=== PATIENT | male | born 1990 | race Caucasian/White ===

== ENCOUNTER 2021-04-18 16:22 | Emergency (ER) | payer SELFPAY ==
[2021-04-18 16:42] VITALS: BP 128/83; PULSE 89; RESP 18; TEMP 36.7; O2SAT 97; BMI 25.7
--- NOTE | 2021-04-18 17:10 | XRR_ITS ---
PROCEDURE INFORMATION: Exam: XR Right Foot Exam date and time: 04/18/2021 5:10 PM Age: 30 years old Clinical indication: Injury or trauma; Fall; Laceration; Foot; Right; Foreign body involvement not specified; Additional info: Laceration/fb TECHNIQUE: Imaging protocol: XR Right foot. Views: 3 or more views. COMPARISON: No relevant prior studies available. FINDINGS: Bones/joints: Normal. Soft tissues: Negative for soft tissue foreign body. XR/XR foot RT min 3V* [id number] IMPRESSION: Radiographically unremarkable right foot.
--- NOTE | 2021-04-18 17:16 | W.ED.WOUNDLC ---
HPI - Wound/Laceration General: Chief Complaint: Wound/Laceration Stated Complaint: right foot lac Time Seen by Provider: 04/18/21 16:51 History of Present Illness: HPI narrative: 30-year-old male presents emergency room laceration on the bottom of his foot. [place] the foot was bleeding pretty significantly triage nurse reportedly first arrived pressure bandage applied when I can look at it he does have an open laceration with small amount of gap gaping. Its continues to ooze some it was rewrapped with a pressure bandage and Coban. He is unsure of his last tetanus and denies any other injuries. Onset (ago): minute(s) Extremity Location: Right: foot Place: outdoors Patient tetanus UTD: No Context: accidental Associated symptoms: Reports pain; Denies chills, fever(s), foreign body sensation, inability to move, nausea, numbness, syncope or vomiting Treatments prior to arrival: bandage Review of Systems Const: Denies: fever(s) or chills ENMT: Denies: throat pain, ear or mastoid pain, nasal discharge or nasal congestion Card: Denies: syncope Resp: Denies: dyspnea, productive cough or non-productive cough GI: Denies: nausea or vomiting : Denies: flank pain, dysuria, urinary frequency or urinary urgency Skin/Breast: Denies: rash or pruritus Physical Exam Const: COMMON NORMALS: no acute distress GENERAL APPEARANCE: cooperative and comfortable ORIENTATION/CONSCIOUSNESS: Yes awake, Yes oriented to person, Yes oriented to place and Yes oriented to time HENMT: COMMON NORMALS: normocephalic, atraumatic and hearing grossly normal bilaterally HEAD & SCALP: normocephalic and atraumatic Neck/C-Spine: COMMON NORMALS: no JVD Resp: COMMON NORMALS: normal respiratory effort, No retractions, No use of accessory muscles and clear to auscultation bilaterally AUSCULTATION: clear to auscultation bilaterally Cardio: COMMON NORMALS: no JVD, regular rate, regular rhythm and No murmurs present (Cardio) RATE: regular rate RHYTHM: regular rhythm Extremity: NARRATIVE EXTREMITY EXAM: Laceration of the sole left foot with moderate bleeding controlled by pressure bandage. Neuro: SENSORIUM/ORIENTATION: Yes oriented to person, Yes oriented to place and Yes oriented to time Skin: COMMON NORMALS: no rashes or lesions noted GENERAL SKIN EXAM: no rashes or lesions noted Procedures Laceration Laceration 1: Site: lower extremity Side (If applicable): left Size (cm): 4 Description: linear Depth: simple, single layer Local Anesthetic: lidocaine 1% and with epi Amount of anesthesia used (mL): 7 Pre-repair: irrigated extensively and deep structures intact Skin layer closed with: nylon Size (cm): 3-0 Technique: running Course Vital Signs: Vital signs: Vital Signs Temperature 98.1 F 04/18/21 16:42 Pulse Rate 84 04/18/21 19:05 Respiratory Rate 16 04/18/21 19:05 Blood Pressure 128/83 04/18/21 16:42 Pulse Oximetry 95 04/18/21 19:05 MDM - Wound/Laceration MDM Narrative: Medical decision making narrative: Discussed wound care. Will start on Augmentin prophylactically for 7 days since this [place]. Sutures out in 10 to 14 days and his infection return immediately. Wound care instructions referred reviewed with the patient use topical [id number] antibiotic ointment keep wrapped during the day can open to air at night do not soak. Discharge Plan Discharge Patient Disposition: Home Clinical Impression: Laceration Condition: Stable Prescriptions: New Augmentin 875-125 mg tablet 1 tab PO BID Qty: 14 RF: 0 Discharge Orders: Discharge ED (Routine); Ordered 04/18/21 Ordered By: Anthony Blackmon Patient Instructions: Opioid Safety Coding Level of Care Code ED Canvas Cutter Hand for Arnulfo Fwd Exam Detailed
[2021-04-18] MEDS: tetanus-dipt-pertussis 0.5 mL SDV IM (18:26)
[2021-04-18] MEDS: ceFAZolin 1,000 MG in sodium chloride 0.9% (plus) 50 ML 100 MG IV (18:32)
[2021-04-18 19:05] VITALS: PULSE 84; RESP 16; O2SAT 95
== END 2021-04-18 19:06 | disposition home or self-care (01) ==
PROVIDERS: Emergency Provider Family Medicine
DX: S91.311A Laceration without foreign body, right foot, initial encounter (principal); W25.XXXA Contact with sharp glass, initial encounter; Y92.828 Other wilderness area as the place of occurrence of the external cause; Z23 Encounter for immunization
CPT/HCPCS: 12002; 73630; 90471; 90715; 96365; 99283; J0690